=== PATIENT | female | born 1985 | race Caucasian/White ===

== ENCOUNTER 2016-10-21 01:09 | Emergency (ER) | payer OTHER ==
[~2016-10-21] VITALS: Ht 170.2 cm; Wt 99.8 kg
[2016-10-21 01:23] VITALS: BP 122/85
[2016-10-21] MEDS ORDERED: HYDR-3713 PO (02:43)
[2016-10-21] MEDS ORDERED: CLEO300C2 PO (02:45)
[2016-10-21] MEDS ORDERED: NORCO 5/325MG TABLET (BULK) PO ONE (02:45)
[2016-10-21] MEDS ORDERED: CLINDAMYCIN 150 MG CAP PO ONE (02:45)
[2016-10-21] MEDS ORDERED: MAGICMW MT (02:45)
== END 2016-10-21 03:18 | disposition home or self-care (01) ==
LOC: M ED 02:34
DX: J02.9 Acute pharyngitis, unspecified (principal); K02.9 Dental caries, unspecified; F60.3 Borderline personality disorder

== ENCOUNTER 2016-10-29 08:05 | Emergency (ER) | payer OTHER ==
[~2016-10-29] VITALS: Ht 167.6 cm; Wt 99.8 kg
[~2016-10-29 08:05] MED LIST: CLEO300C2 PO; HYDR-3713 PO; MAGICMW MT
[2016-10-29 08:20] VITALS: BP 141/82
[2016-10-29] MEDS ORDERED: IBUP200T45 PO (08:43)
[2016-10-29] MEDS ORDERED: ACET30TAB PO (09:21)
== END 2016-10-29 09:47 | disposition home or self-care (01) ==
LOC: M ED 09:07
DX: H57.11 Ocular pain, right eye (principal); Z79.2 Long term (current) use of antibiotics

== ENCOUNTER 2017-01-12 23:38 | Emergency (ER) | payer OTHER ==
[~2017-01-12] VITALS: Ht 165.1 cm; Wt 99.8 kg
[~2017-01-12 23:38] MED LIST changes: +ACET30TAB PO; +IBUP200T45 PO
[2017-01-13] MEDS ORDERED: NS 1,000 ML IV ONE ×2 (01:00→02:00)
[2017-01-13] MEDS ORDERED: ONDANSETRON 4MG/2ML VIAL (J2405) IV ONE (01:00)
[2017-01-13] MEDS ORDERED: KETOROLAC 30 MG/ML VIAL (J1885) IV ONE (01:00)
[2017-01-13] MEDS ORDERED: GI COCKTAIL 50ML BTL(HYOSCYAMINE/MAALOX/LIDOCAINE VISCOUS)(1:3:1) PO ONE (01:15)
[2017-01-13 01:16] LABS: BASO % 0.3 % (0.0-1.0); EOS # 0.2 K/mm3 (0.0-0.50); EOS % 1.7 % (0.0-3.0); LARGE UNSTAINED CELL # 0.2 K/mm3 (0.0-0.4); LARGE UNSTAINED CELL % 1.4 % (0.0-4.0); LYMPH # 2.9 K/mm3 (1.5-6.5); LYMPH % 22.2 % (24.0-44.0); MEAN CORPUSCULAR HEMOGLOBIN 29.9 pg (27.0-33.0); MEAN CORPUSCULAR HGB CONC 33.9 g/dl (32.0-36.5); MEAN CORPUSCULAR VOLUME 88.1 fl (80.0-96.0); MONO # 0.5 K/mm3 (0.0-0.8); MONO % 3.5 % (0.0-5.0); NEUTROPHILS # 9.1 K/mm3 (1.8-7.7); NEUTROPHILS % 70.9 % (36.0-66.0); PLATELET COUNT, AUTOMATED 255 k/mm3 (150-450); RED CELL DISTRIBUTION WIDTH 13.1 % (11.5-14.5); WHITE BLOOD COUNT 12.8 K/mm3 (4.0-10.0)
[2017-01-13] MEDS ORDERED: NEOSPORIN OINT 0.9 GM PKT (FLOOR STOCK) As Ordered ONE (01:22)
[2017-01-13 01:35] LABS: ALBUMIN 3.4 GM/DL (3.2-5.2); ALBUMIN/GLOBULIN RATIO 0.81 (1.00-1.93); ALKALINE PHOSPHATASE 82 U/L (45-117); ALT/SGPT 36 U/L (12-78); ANION GAP 5 MEQ/L (8-16); AST/SGOT 19 U/L (15-37); BILIRUBIN,DIRECT < 0.1 MG/DL (0.0-0.2); BILIRUBIN,TOTAL 0.2 MG/DL (0.2-1.0); BLOOD UREA NITROGEN 7 MG/DL (7-18); CALCIUM LEVEL 8.8 MG/DL (8.5-10.1); CARBON DIOXIDE LEVEL 25 MEQ/L (21-32); CHLORIDE LEVEL 110 MEQ/L (98-107); CREATININE FOR GFR 0.61 MG/DL (0.55-1.02); GLOMERULAR FILTRATION RATE > 60.0 (>60); GLUCOSE, FASTING 89 MG/DL (70-105); POTASSIUM SERUM 3.8 MEQ/L (3.5-5.1); SODIUM LEVEL 140 MEQ/L (136-145); TOTAL PROTEIN 7.6 GM/DL (6.4-8.2)
[2017-01-13] MEDS ORDERED: CIPROFLOXACIN 400 MG in APPROPRIATE DILUENT 1 EA IV ONE (02:00)
[2017-01-13] MEDS ORDERED: MORPHINE 4 MG/ML 1ML SYRINGE IV ONE (02:00)
--- NOTE | 2017-01-13 03:00 | REPUSA ---
CLINICAL HISTORY: Abdominal pain. TECHNIQUE: Multiple axial, sagittal and coronal CT images were obtained through the abdomen and pelvi s without administration of oral or IV contrast material. COMMENTS: The liver is of uniform attenuation without mass or defect. There is no intra or extrahepatic biliary ductal dilatation. The spleen is normal. The gallbladder is within normal limits. The pancreas is of normal contour and attenuation characteristics. There is no evidence of adrenal mass. 3 mm left renal nonobstructing stone. The kidneys are normal in size, shape and configuration. No right renal or ureteral calculi are iden tified. There is no hydroureter or hydronephrosis. There is no evidence for appendicitis. There is no bowel wall thickening. No evidence for small or la rge bowel obstruction. There is no evidence of abdominal ascites or lymphadenopathy. There is no evidence of intrinsic or extrinsic bladder mass. There is no pelvic ascites or lymphadeno thao. Thickened bladder. Images of the lung bases show no evidence of pleural or parenchymal mass. There are no pleural effusi ons. The bony structures are free of lytic or blastic lesions. IMPRESSION: Thickened bladder. Under distention versus cystitis. Nonobstructing left renal stone. Thank you for your kind referral of this patient.
[2017-01-13] MEDS ORDERED: CIPR500T89 PO (03:19)
[2017-01-13 04:30] VITALS: BP 134/90
== END 2017-01-13 04:32 | disposition home or self-care (01) ==
LOC: M ED 01-13 00:11
DX: N39.0 Urinary tract infection, site not specified (principal); N20.0 Calculus of kidney; F17.200 Nicotine dependence, unspecified, uncomplicated; E66.9 Obesity, unspecified

== ENCOUNTER 2017-02-01 18:38 | Emergency (ER) | payer OTHER ==
[~2017-02-01] VITALS: Ht 165.1 cm; Wt 100.0 kg
[~2017-02-01 18:38] MED LIST changes: +CIPR-249 PO
[2017-02-01] MEDS ORDERED: ONDANSETRON 4MG/2ML VIAL (J2405) IV ONE (21:15)
[2017-02-01] MEDS ORDERED: NS 1,000 ML IV ONE (21:15)
[2017-02-01] MEDS ORDERED: GI COCKTAIL 50ML BTL(HYOSCYAMINE/MAALOX/LIDOCAINE VISCOUS)(1:3:1) PO ONE (21:15)
[2017-02-01 21:42] LABS: BASO % 0.3 % (0.0-1.0); EOS # 0.2 K/mm3 (0.0-0.50); LARGE UNSTAINED CELL # 0.1 K/mm3 (0.0-0.4); LYMPH # 2.5 K/mm3 (1.5-6.5); LYMPH % 19.9 % (24.0-44.0); MEAN CORPUSCULAR HEMOGLOBIN 29.7 pg (27.0-33.0); MEAN CORPUSCULAR HGB CONC 33.9 g/dl (32.0-36.5); MEAN CORPUSCULAR VOLUME 87.6 fl (80.0-96.0); MONO # 0.4 K/mm3 (0.0-0.8); MONO % 3.1 % (0.0-5.0); NEUTROPHILS # 8.7 K/mm3 (1.8-7.7); NEUTROPHILS % 73.7 % (36.0-66.0); PLATELET COUNT, AUTOMATED 216 k/mm3 (150-450); RED CELL DISTRIBUTION WIDTH 13.2 % (11.5-14.5); WHITE BLOOD COUNT 11.8 K/mm3 (4.0-10.0)
[2017-02-01 22:25] LABS: ALBUMIN 3.5 GM/DL (3.2-5.2); ALKALINE PHOSPHATASE 85 U/L (45-117); ALT/SGPT 28 U/L (12-78); ANION GAP 5 MEQ/L (8-16); AST/SGOT 17 U/L (15-37); BILIRUBIN,DIRECT < 0.1 MG/DL (0.0-0.2); BILIRUBIN,TOTAL 0.3 MG/DL (0.2-1.0); BLOOD UREA NITROGEN 8 MG/DL (7-18); CALCIUM LEVEL 8.1 MG/DL (8.5-10.1); CARBON DIOXIDE LEVEL 26 MEQ/L (21-32); CHLORIDE LEVEL 107 MEQ/L (98-107); CREATININE FOR GFR 0.63 MG/DL (0.55-1.02); GLOMERULAR FILTRATION RATE > 60.0 (>60); GLUCOSE, FASTING 82 MG/DL (70-105); POTASSIUM SERUM 3.7 MEQ/L (3.5-5.1); SODIUM LEVEL 138 MEQ/L (136-145)
[2017-02-01 22:31] VITALS: BP 114/69
[2017-02-01] MEDS ORDERED: OXYCODONE/APAP 5MG/325MG(BULK FOR ED) 1 TABLET PO ONE (22:45)
[2017-02-01] MEDS ORDERED: ZOFR4TAB3 PO (22:50)
[2017-02-01] MEDS ORDERED: NORCOTAB PO (22:50)
[2017-06-20] MEDS ORDERED: RISP0.5T21 PO (14:50)
[2017-06-20] MEDS ORDERED: TRAZO50TA PO (14:50)
[2017-06-20] MEDS ORDERED: QUET1TAB7 PO (14:50)
[2017-06-20] MEDS ORDERED: SERT50TA PO (14:50)
[2017-06-24] MEDS ORDERED: AMOX875T PO (11:16)
[2017-06-24] MEDS ORDERED: NORCOTAB PO (11:17)
== END 2017-02-01 23:16 | disposition home or self-care (01) ==
LOC: M ED 21:08
DX: R10.9 Unspecified abdominal pain (principal); F17.200 Nicotine dependence, unspecified, uncomplicated

== ENCOUNTER 2017-02-07 14:55 | Emergency (ER) | payer OTHER ==
[~2017-02-07] VITALS: Ht 166.4 cm; Wt 98.7 kg
[~2017-02-07 14:55] MED LIST changes: +NORCOTAB PO; +ZOFR4TAB3 PO
[2017-02-07] MEDS ORDERED: NS 1,000 ML IV ONE (15:30)
[2017-02-07] MEDS ORDERED: ONDANSETRON 4MG/2ML VIAL (J2405) IV ONE (15:30)
[2017-02-07] MEDS ORDERED: KETOROLAC 30 MG/ML VIAL (J1885) IV ONE (15:30)
[2017-02-07] MEDS ORDERED: GASTROGRAFIN SOLUTION 30ML (Q9963) As Ordered ONE (15:34)
[2017-02-07] MEDS ORDERED: GASTROGRAFIN SOLUTION 30ML (Q9963) PO ONE ×2 (15:45→16:15)
[2017-02-07] MEDS ORDERED: METOCLOPRAMIDE INJ 10MG/2ML VIAL (J2765) IV ONE (16:00)
[2017-02-07 16:03] LABS: BASO % 0.1 % (0.0-1.0); EOS % 0.3 % (0.0-3.0); LARGE UNSTAINED CELL # 0.1 K/mm3 (0.0-0.4); LARGE UNSTAINED CELL % 0.7 % (0.0-4.0); LYMPH % 5.3 % (24.0-44.0); MEAN CORPUSCULAR HEMOGLOBIN 30.2 pg (27.0-33.0); MEAN CORPUSCULAR HGB CONC 34.7 g/dl (32.0-36.5); MEAN CORPUSCULAR VOLUME 86.9 fl (80.0-96.0); MONO # 0.8 K/mm3 (0.0-0.8); MONO % 4.4 % (0.0-5.0); NEUTROPHILS # 15.4 K/mm3 (1.8-7.7); NEUTROPHILS % 89.2 % (36.0-66.0); PLATELET COUNT, AUTOMATED 235 k/mm3 (150-450); RED CELL DISTRIBUTION WIDTH 13.1 % (11.5-14.5); WHITE BLOOD COUNT 17.2 K/mm3 (4.0-10.0)
[2017-02-07 16:27] LABS: MICROSCOPIC INDICATED? MAN YES (NO)
[2017-02-07 16:28] LABS: BACTERIA, URINE SMALL AMOUNT; HYALINE CAST, URINE NONE SEEN /lpf (0-1); MICROSCOPIC EXAM UNSPUN; RBC, URINE 0-1 /hpf (0-3); SQUAMOUS EPITHELIAL CELL URINE SMALL AMOUNT /hpf (SMALL AMT)
[2017-02-07] MEDS ORDERED: MORPHINE 4 MG/ML 1ML SYRINGE IV ONE (16:45)
[2017-02-07 17:05] LABS: CONTROL LINE HCG INT CTR LINE PRESENT
[2017-02-07] MEDS ORDERED: ISOVUE-370 76% 100ML VIAL (Q9967) As Ordered ONE (17:07)
[2017-02-07 17:12] LABS: ALBUMIN/GLOBULIN RATIO 0.93 (1.00-1.93); ALKALINE PHOSPHATASE 95 U/L (45-117); ALT/SGPT 36 U/L (12-78); ANION GAP 10 MEQ/L (8-16); AST/SGOT 22 U/L (15-37); BILIRUBIN,DIRECT 0.1 MG/DL (0.0-0.2); BILIRUBIN,TOTAL 0.4 MG/DL (0.2-1.0); BLOOD UREA NITROGEN 10 MG/DL (7-18); CALCIUM LEVEL 9.1 MG/DL (8.5-10.1); CARBON DIOXIDE LEVEL 22 MEQ/L (21-32); CHLORIDE LEVEL 106 MEQ/L (98-107); CREATININE FOR GFR 0.67 MG/DL (0.55-1.02); GLOMERULAR FILTRATION RATE > 60.0 (>60); GLUCOSE, FASTING 142 MG/DL (70-105); SODIUM LEVEL 138 MEQ/L (136-145); TOTAL PROTEIN 8.3 GM/DL (6.4-8.2)
[2017-02-07] MEDS ORDERED: CIPROFLOXACIN 500 MG TAB PO ONE (18:15)
[2017-02-07] MEDS ORDERED: metroNIDAZOLE (FLAGYL) 500 MG TAB PO ONE (18:15)
--- NOTE | 2017-02-07 18:23 | REP ---
CT ABDOMEN AND PELVIS WITH IV AND ORAL CONTRAST: 02/07/2017. Clinical history: Generalized abdominal pain, left lower quadrant pain. Negative UCG. Comparison: 01/13/2017. Technique: Oral Gastrografin mixture 10 mL in 290 mL of flavored water for two doses per our bowel contrast protocol. Scanning through the abdomen and pelvis then performed after bolus of 100 mL Isovue 370. Coronal and sagittal reconstructions provided. Findings:CT abdomen: The lung bases are clear. No infiltrate or effusion. No nodule or mass. Heart is not enlarged. There is no pericardial thickening or effusion. Liver has a vertical diameter of 17 cm midclavicular line in the right hepatic lobe, not grossly enlarged. No hepatic mass, biliary dilatation or adjacent ascites. No splenomegaly or focal lesion. The gallbladder shows no calcified stone or mass. Adrenal glands are normal. Pancreas unremarkable. Kidneys show function without obstruction or mass. There is a 0.6 mm stone in the lower pole zaria without hydronephrosis, cyst or solid mass in either kidney. The ureters show a normal course to the bladder and are without dilatation or stone on either side. Aorta is normal. There is no periaortic or other retroperitoneal pathologic sized lymphadenopathy. Upper abdominal small bowel loops contrast filled, but without dilatation. Some minor thickening of the payne of the distal most aspect of the terminal ileum just before the ileocecal valve. Cecum, right colon through the flexures, transverse colon grossly unremarkable. There is some minor thickening of the wall of the left colon. Some minor inflammatory changes adjacent suggesting some mild colitis. There is no sign of perforation or free air in the abdomen or pelvis on lung window review of all CT slice levels. The bone windows show no destructive lesion in the spine or posterior elements and the visualized ribs were intact. CT pelvis: Bony hips, pelvis, sacrum, SI joints, lumbosacral junction all unremarkable on bone window settings. Uterus anteverted, not enlarged. Ovaries symmetric and without a mass. Bladder only partially filled without stone, wall thickening or mass. There is no ventral or inguinal hernia nor pathologic sized inguinal adenopathy. Small bowel loops unremarkable. Appendix seen and normal, filled with oral contrast. The distal left colon, sigmoid and rectum grossly intact. No pathologic sized inguinal adenopathy. Impression: 1. Evidence suggesting some mild colitis in the left colon without definite stricture, abscess or mass. Sigmoid colon not well distended and wall thickness cannot be judged. 2. Distal most terminal ileum shows mucosal thickening but no inflammatory changes in the adjacent fat. The appendix is seen and normal. No other colonic or small bowel abnormality. This may reflect some inflammatory bowel disease. Consider Crohn disease with terminal ileitis and colitis. 3. No ascites, adenopathy, abscess, mass or free air. Solid organs unremarkable. Bones unremarkable. Signed by Vinicius Mcdaniel MD 02/08/2017 08:39 P
[2017-02-07] MEDS ORDERED: ZOFR4TAB3 PO (18:25)
[2017-02-07] MEDS ORDERED: CIPR-249 PO (18:25)
[2017-02-07] MEDS ORDERED: FLAG500T PO (18:25)
[2017-02-07 18:40] VITALS: BP 123/78
[2017-06-20] MEDS ORDERED: QUET1TAB7 PO (14:50)
[2017-06-20] MEDS ORDERED: RISP0.5T21 PO (14:50)
[2017-06-20] MEDS ORDERED: TRAZO50TA PO (14:50)
[2017-06-20] MEDS ORDERED: SERT50TA PO (14:50)
[2017-06-24] MEDS ORDERED: AMOX875T PO (11:16)
[2017-06-24] MEDS ORDERED: NORCOTAB PO (11:17)
== END 2017-02-07 18:41 | disposition home or self-care (01) ==
LOC: M ED 15:37
DX: K52.9 Noninfective gastroenteritis and colitis, unspecified (principal); F17.200 Nicotine dependence, unspecified, uncomplicated; F60.9 Personality disorder, unspecified

== ENCOUNTER 2022-05-23 15:17 | Emergency (ER) | payer MEDICAID, OTHER, SELFPAY ==
[~2022-05-23] VITALS: Ht 167.6 cm; Wt 94.1 kg
[~2022-05-23 15:17] MED LIST changes: +ACET-716 PO; -ACET30TAB PO; +AMOX875T PO; +FLAG500T PO; +HYDR-3715 PO; -IBUP200T45 PO; +IBUP200T46 PO; -NORCOTAB PO; +QUET1TAB17 PO; +RISP0.5T21 PO; +SERT-141 PO; +TRAZ1TAB10 PO; +ZOFR4TAB14 PO; -ZOFR4TAB3 PO
[2022-05-23 15:48] LABS: BASO % 0.2 % (0.0-1.0); EOS # 0.2 10^3/uL (0.0-0.5); EOS % 1.2 % (0.0-3.0); HEMATOCRIT 27.5 % (36.0-47.0); HEMOGLOBIN 9.1 g/dl (12.0-15.5); LYMPH # 1.8 10^3/uL (1.5-5.0); LYMPH % 14.8 % (24.0-44.0); MEAN CORPUSCULAR HEMOGLOBIN 27.8 pg (27.0-33.0); MEAN CORPUSCULAR HGB CONC 33.1 g/dl (32.0-36.5); MEAN CORPUSCULAR VOLUME 84.1 fl (80.0-96.0); MONO # 0.6 10^3/uL (0.0-0.8); MONO % 5.1 % (2.0-8.0); NEUTROPHILS # 9.7 10^3/uL (1.5-8.5); NEUTROPHILS % 78.1 % (36.0-66.0); PLATELET COUNT, AUTOMATED 242 10^3/uL (150-450); RED BLOOD COUNT 3.27 10^6/uL (4.00-5.40); WHITE BLOOD COUNT 12.4 10^3/uL (4.0-10.0)
[2022-05-23 16:51] LABS: BLOOD UREA NITROGEN 6 MG/DL (7-18); CALCIUM LEVEL 8.8 MG/DL (8.5-10.1); CARBON DIOXIDE LEVEL 23 MEQ/L (21-32); CHLORIDE LEVEL 109 MEQ/L (98-107); CREATININE FOR GFR 0.45 MG/DL (0.55-1.30); FREE T4 0.85 NG/DL (0.76-1.46); GLOMERULAR FILTRATION RATE > 60.0 (>60); GLUCOSE, FASTING 101 MG/DL (70-100); MAGNESIUM LEVEL 1.8 MG/DL (1.8-2.4); POTASSIUM SERUM 3.9 MEQ/L (3.5-5.1); SODIUM LEVEL 137 MEQ/L (136-145)
[2022-05-23 17:15] VITALS: BP 103/55
[2022-05-23 17:44] LABS: APPEARANCE, URINE MANUAL CLOUDY (CLEAR); COLOR, URINE MANUAL YELLOW (YELLOW); SPECIFIC GRAVITY,URINE MANUAL 1.015 (1.002-1.035)
[2022-05-23 17:45] LABS: BILIRUBIN, URINE MANUAL NEGATIVE (NEGATIVE); BLOOD URINE MANUAL POSITIVE (NEGATIVE); GLUCOSE, URINE (UA) MANUAL NEGATIVE (NEGATIVE); KETONE, URINE MANUAL NEGATIVE (NEGATIVE); LEUKOCYTE ESTERASE, URINE MAN POSITIVE (NEGATIVE); NITRITE, URINE MANUAL NEGATIVE (NEGATIVE); PROTEIN, URINE MANUAL 1+ mg/dL (NEGATIVE); UROBILINOGEN, URINE MANUAL NORMAL (NORMAL)
[2022-05-23 17:54] LABS: WBC, URINE TNTC /hpf (0-3)
[2022-05-23 17:55] LABS: AMORPHOUS SEDIMENT, URINE SMALL AMOUNT (NEGATIVE); BACTERIA, URINE LARGE AMOUNT; HYALINE CAST, URINE NONE SEEN /lpf (0-1); SQUAMOUS EPITHELIAL CELL URINE MOD AMOUNT /hpf (SMALL AMT)
[2022-05-23] MEDS ORDERED: NITR1CAP11 PO (17:57)
== END 2022-05-23 18:10 | disposition home or self-care (01) ==
LOC: M ED 15:17
DX: O23.92 Unspecified genitourinary tract infection in pregnancy, second trimester (principal); O26.92 Pregnancy related conditions, unspecified, second trimester; R42 Dizziness and giddiness; F17.200 Nicotine dependence, unspecified, uncomplicated; Z3A.23 23 weeks gestation of pregnancy; Z87.442 Personal history of urinary calculi

== ENCOUNTER → 2022-06-19 | Outpatient (CLI) | payer OTHER ==
[~2022-06-19] MED LIST changes: +NITR1CAP11 PO
[2022-06-19 15:28] LABS: HEMATOCRIT 27.6 % (36.0-47.0); HEMOGLOBIN 8.8 g/dl (12.0-15.5); MEAN CORPUSCULAR HEMOGLOBIN 27.4 pg (27.0-33.0); MEAN CORPUSCULAR HGB CONC 31.9 g/dl (32.0-36.5); PLATELET COUNT, AUTOMATED 261 10^3/uL (150-450); RED BLOOD COUNT 3.21 10^6/uL (4.00-5.40)
[2022-06-19 17:02] LABS: GC DNA AMPLIFICATION NEGATIVE (NEGATIVE)
[2022-06-19 20:21] LABS: GLUCOSE CHALLENGE TEST 1 HOUR 146 MG/DL (LESS THAN 140); HEPATITIS C VIRUS ABY INDEX < 0.0 INDEX (<0.8); HIV 1&2 SCREEN CENTAUR NEGATIVE (NEGATIVE)
== END ==
LOC: M PLALAB 11:33
PROVIDERS: ATTEND Advanced Practice Midwife
DX: O30.042 Twin pregnancy, dichorionic/diamniotic, second trimester (principal); Z3A.00 Weeks of gestation of pregnancy not specified

== ENCOUNTER → 2022-06-26 | Outpatient (CLI) | payer OTHER | LOC: M LAB 07:51 | PROVIDERS: ATTEND Advanced Practice Midwife | DX: O99.810 Abnormal glucose complicating pregnancy (principal) ==

== ENCOUNTER → 2022-07-18 | Outpatient (CLI) | payer OTHER | LOC: M RAD 14:16 | PROVIDERS: ATTEND Advanced Practice Midwife | DX: O30.042 Twin pregnancy, dichorionic/diamniotic, second trimester (principal); Z3A.31 31 weeks gestation of pregnancy ==

== ENCOUNTER → 2022-07-25 | Outpatient (CLI) | payer OTHER | LOC: M WHC 12:52 | PROVIDERS: ATTEND Advanced Practice Midwife | DX: O30.043 Twin pregnancy, dichorionic/diamniotic, third trimester (principal); Z3A.32 32 weeks gestation of pregnancy; O32.1XX1 Maternal care for breech presentation, fetus 1 ==

== ENCOUNTER → 2022-08-22 | Outpatient (REF) | payer OTHER ==
[~2022-08-22] MED LIST changes: +CVS50CAP PO; +FLUO40CA PO; +IRON27TA2 PO; +VITA65TA PO
== END ==
LOC: M SFHCWAGY 17:18
PROVIDERS: ATTEND Advanced Practice Midwife
DX: O30.043 Twin pregnancy, dichorionic/diamniotic, third trimester (principal)

== ENCOUNTER → 2022-08-22 | Outpatient (CLI) | payer OTHER | LOC: M LABSMTC 11:46 | PROVIDERS: ATTEND Anesthesiology | DX: Z01.818 Encounter for other preprocedural examination (principal) ==

== ENCOUNTER 2022-08-25 23:48 | Inpatient (IN) | payer OTHER ==
[~2022-08-25] VITALS: Ht 167.6 cm; Wt 100.7 kg
[2022-08-26] VITALS (9 sets, daily range): BP systolic 104–132; BP diastolic 55–78
[2022-08-26] MEDS ORDERED: HOME MED LIST COMPLETE! XX SCH (00:25)
[2022-08-26] MEDS ORDERED: LACTATED RINGER'S 1000 ML IV STA (00:55)
[2022-08-26] MEDS ORDERED: TRANEXAMIC ACID INJection 1,000 MG in NS 100 ML IV PRN (00:55)
[2022-08-26] MEDS ORDERED: ceFAZolin SOD 2 GM in IV 1 EA IV ONE (00:55)
[2022-08-26] MEDS ORDERED: AZITHROMYCIN INJ 500 MG, VIAL MATE ADAPTER 1 EACH in NS 250 ML IV ONE (00:55)
[2022-08-26] MEDS ORDERED: LR 1,000 ML IV SCH (00:55)
[2022-08-26] MEDS ORDERED: BICITRA 30ML SOLN UDC PO ONE (00:55)
[2022-08-26 01:14] LABS: HEMATOCRIT 27.1 % (36.0-47.0); HEMOGLOBIN 8.7 g/dl (12.0-15.5); MEAN CORPUSCULAR HEMOGLOBIN 25.1 pg (27.0-33.0); MEAN CORPUSCULAR HGB CONC 32.1 g/dl (32.0-36.5); MEAN CORPUSCULAR VOLUME 78.1 fl (80.0-96.0); PLATELET COUNT, AUTOMATED 146 10^3/uL (150-450); RED BLOOD COUNT 3.47 10^6/uL (4.00-5.40); WHITE BLOOD COUNT 13.3 10^3/uL (4.0-10.0)
[2022-08-26] MEDS ORDERED: ONDANSETRON 4MG 2ML VIAL As Ordered ONE (02:30)
[2022-08-26] MEDS ORDERED: METOCLOPRAMIDE INJ 10MG/2ML VIAL As Ordered ONE (02:30)
[2022-08-26] MEDS ORDERED: OXYTOCIN 30UNITS IN 0.9% NaCl 500ML IV BAG As Ordered ONE ×3 (02:30→03:29)
[2022-08-26] MEDS ORDERED: KETOROLAC 60MG 2ML VIAL As Ordered ONE (02:30)
[2022-08-26] MEDS ORDERED: MORPHINE PRES-FREE INJ 10 MG/10 ML VIAL As Ordered ONE (02:30)
[2022-08-26] MEDS ORDERED: PHENYLephrine 500MCG 5ML (100MCG/ML) SYRINGE As Ordered ONE ×2 (02:30→02:34)
[2022-08-26] MEDS ORDERED: PERCOCET 5MG/325MG TAB PO PRN (03:20)
[2022-08-26] MEDS ORDERED: ACETAMINOPHEN 500 MG TAB PO PRN (03:20)
[2022-08-26] MEDS ORDERED: SIMETHICONE 80MG CHEW TAB PO PRN (03:20)
[2022-08-26] MEDS ORDERED: ONDANSETRON 4MG 2ML VIAL IV PRN (03:20)
[2022-08-26] MEDS ORDERED: RHOGAM 300MCG (1500IU) INJ IM SCH (03:20)
[2022-08-26] MEDS ORDERED: OXYTOCIN DRIP 30 UNITS in IV 1 EA IV SCH (03:20)
[2022-08-26] MEDS ORDERED: MOM 30ML SUSPENSION UDC PO PRN (03:20)
[2022-08-26] MEDS: LR 1,000 ML IV SCH ×4 (03:20→22:01)
[2022-08-26 07:43] LABS: HEMATOCRIT 25.4 % (36.0-47.0); MEAN CORPUSCULAR HEMOGLOBIN 25.1 pg (27.0-33.0); MEAN CORPUSCULAR HGB CONC 31.5 g/dl (32.0-36.5); MEAN CORPUSCULAR VOLUME 79.6 fl (80.0-96.0); PLATELET COUNT, AUTOMATED 123 10^3/uL (150-450); RED BLOOD COUNT 3.19 10^6/uL (4.00-5.40); WHITE BLOOD COUNT 19.4 10^3/uL (4.0-10.0)
[2022-08-26] MEDS: DOCUSATE SODIUM 100MG CAPSULE PO SCH ×2 (09:53→20:50)
[2022-08-26] MEDS: PRENATAL VITAMINS CHEWABLE TABLET PO SCH (09:53)
[2022-08-26] MEDS: KETOROLAC 30 MG/ML 1ML VIAL IV SCH ×3 (09:53→20:50)
[2022-08-26] MEDS: PERCOCET 5MG/325MG TAB PO PRN (19:44)
[2022-08-27 02:00] VITALS: BP 128/65
[2022-08-27] MEDS: PERCOCET 5MG/325MG TAB PO PRN ×2 (02:04→12:11)
[2022-08-27] MEDS: IBUPROFEN 800 MG TAB PO SCH ×3 (05:14→20:37)
[2022-08-27 06:00] VITALS: BP 120/75
[2022-08-27 06:35] LABS: HEMATOCRIT 23.9 % (36.0-47.0); HEMOGLOBIN 7.5 g/dl (12.0-15.5); MEAN CORPUSCULAR HEMOGLOBIN 24.9 pg (27.0-33.0); MEAN CORPUSCULAR HGB CONC 31.4 g/dl (32.0-36.5); MEAN CORPUSCULAR VOLUME 79.4 fl (80.0-96.0); PLATELET COUNT, AUTOMATED 162 10^3/uL (150-450); RED BLOOD COUNT 3.01 10^6/uL (4.00-5.40); WHITE BLOOD COUNT 13.2 10^3/uL (4.0-10.0)
[2022-08-27] MEDS: DOCUSATE SODIUM 100MG CAPSULE PO SCH ×2 (08:32→20:37)
[2022-08-27] MEDS: PRENATAL VITAMINS CHEWABLE TABLET PO SCH (08:32)
[2022-08-27] MEDS ORDERED: INFLUENZA QUADRIVALENT PF VACCINE 0.5ML SYRINGE IM.IMMUN ONE (09:00)
[2022-08-27] MEDS ORDERED: BOOSTRIX/ADACEL VACCINE (DIPHTH/PERTUSS/ACELL/TETANUS) 0.5ML SYR IM.IMMUN ONE (09:00)
[2022-08-27 10:15] VITALS: BP 126/76
[2022-08-27 14:00] VITALS: BP 121/64
[2022-08-27 18:00] VITALS: BP 128/63
[2022-08-27 22:08] VITALS: BP 112/71
[2022-08-28 02:05] VITALS: BP 121/61
[2022-08-28] MEDS: IBUPROFEN 800 MG TAB PO SCH ×2 (05:08→12:43)
[2022-08-28 06:00] VITALS: BP 142/80
[2022-08-28 06:44] VITALS: BP 120/65
[2022-08-28] MEDS: DOCUSATE SODIUM 100MG CAPSULE PO SCH (08:28)
[2022-08-28] MEDS: PRENATAL VITAMINS CHEWABLE TABLET PO SCH (08:28)
[2022-08-28] MEDS ORDERED: MEASLES,MUMPS,RUBELLA VACCINE INJ (MMR-II) SC.IMMUN ONE (09:00)
[2022-08-28] MEDS: PERCOCET 5MG/325MG TAB PO PRN (09:37)
[2022-08-28 10:00] VITALS: BP 137/72
[2022-08-28] MEDS ORDERED: IBUP80TA PO (11:19)
[2022-08-28] MEDS ORDERED: PERCOCET PO (11:19)
== END 2022-08-28 15:25 | disposition home or self-care (01) | DRG 540 ==
LOC: M LDO 23:48 → M LDI 08-26 00:50 → M OBS 08-26 04:41
PROVIDERS: ADMIT Obstetrics & Gynecology; ATTEND Obstetrics & Gynecology
PROC: 0UB70ZZ Excision of Bilateral Fallopian Tubes, Open Approach (ICD-10-PCS; 2022-08-26)
PROC: 10D00Z1 Extraction of Products of Conception, Low, Open Approach (ICD-10-PCS; principal; 2022-08-26 01:02)
DX: O32.1XX0 Maternal care for breech presentation, not applicable or unspecified (principal); Z37.2 Twins, both liveborn; O24.429 Gestational diabetes mellitus in childbirth, unspecified control; F17.210 Nicotine dependence, cigarettes, uncomplicated; O99.334 Smoking (tobacco) complicating childbirth; Z3A.37 37 weeks gestation of pregnancy; Z88.8 Allergy status to other drugs, medicaments and biological substances; O30.013 Twin pregnancy, monochorionic/monoamniotic, third trimester

== ENCOUNTER 2022-09-03 10:14 | Emergency (ER) | payer OTHER ==
[~2022-09-03] VITALS: Ht 167.6 cm; Wt 98.5 kg
[~2022-09-03 10:14] MED LIST changes: +IBUP80TA PO; +PERCOCET PO
[2022-09-03] MEDS ORDERED: NS 1,000 ML IV ONE (13:45)
[2022-09-03] MEDS ORDERED: ACETAMINOPHEN 325 MG TAB PO ONE (13:45)
[2022-09-03 13:59] LABS: BASO # 0.1 10^3/uL (0.0-0.2); BASO % 0.5 % (0.0-1.0); EOS # 0.2 10^3/uL (0.0-0.5); EOS % 1.5 % (0.0-3.0); HEMOGLOBIN 9.1 g/dl (12.0-15.5); LYMPH % 18.5 % (24.0-44.0); MEAN CORPUSCULAR HEMOGLOBIN 24.9 pg (27.0-33.0); MEAN CORPUSCULAR HGB CONC 30.3 g/dl (32.0-36.5); MONO # 0.5 10^3/uL (0.0-0.8); MONO % 4.3 % (2.0-8.0); NEUTROPHILS # 8.2 10^3/uL (1.5-8.5); NEUTROPHILS % 74.2 % (36.0-66.0); PLATELET COUNT, AUTOMATED 394 10^3/uL (150-450); RED BLOOD COUNT 3.66 10^6/uL (4.00-5.40)
[2022-09-03 14:22] LABS: BLOOD UREA NITROGEN 11 MG/DL (9-23); CALCIUM LEVEL 8.3 MG/DL (8.5-10.1); CARBON DIOXIDE LEVEL 25 MMOL/L (20-31); CHLORIDE LEVEL 107 MMOL/L (98-107); CREATININE FOR GFR 0.57 MG/DL (0.55-1.30); GLOMERULAR FILTRATION RATE > 60.0 (>60); GLUCOSE, FASTING 72 MG/DL (60-100); POTASSIUM SERUM 4.5 MMOL/L (3.5-5.1); SODIUM LEVEL 139 MMOL/L (136-145)
[2022-09-03] MEDS ORDERED: KETOROLAC 30 MG/ML 1ML VIAL IV ONE (15:00)
[2022-09-03 15:21] LABS: ERYTHROCYTE SEDIMENTATION RATE 55 mm/hr (0-20)
[2022-09-03] MEDS ORDERED: diphenhydrAMINE 50MG/ML VIAL IV STA (16:22)
[2022-09-03] MEDS ORDERED: MAG SULF 1GM/100ML (MAG RUN) 1 GM in IV 1 EA IV ONE (16:30)
[2022-09-03] MEDS ORDERED: HALOPERIDOL 5MG/ML 1ML VIAL IV ONE (16:30)
[2022-09-03] MEDS ORDERED: PERCOCET PO (17:42)
[2022-09-03] MEDS ORDERED: PROC10TA5 PO (17:42)
[2022-09-03 17:55] VITALS: BP 186/96
== END 2022-09-03 17:58 | disposition home or self-care (01) ==
LOC: M ED 10:14
DX: O89.4 Spinal and epidural anesthesia-induced headache during the puerperium (principal); F31.9 Bipolar disorder, unspecified; F41.9 Anxiety disorder, unspecified; Z87.442 Personal history of urinary calculi; Z88.2 Allergy status to sulfonamides; Z79.810 Long term (current) use of selective estrogen receptor modulators (SERMs); Z79.899 Other long term (current) drug therapy
CPT/HCPCS: 70450; 80048; 85025; 85652; 86140; 96365; 96375; 99284; J1100

== ENCOUNTER → 2023-11-07 | Outpatient (REF) | payer OTHER ==
[~2023-11-07] MED LIST changes: +PROC10TA5 PO
[2023-11-07 16:50] LABS: APPEARANCE, URINE CLOUDY (CLEAR); BACTERIA, URINE AUTO 2+ (NEGATIVE); BILIRUBIN, URINE AUTO NEGATIVE (NEGATIVE); BLOOD, URINE BLOOD 1+ (NEGATIVE); CALCIUM OXALATE CRYSTALS SMALL; COLOR, URINE AMBER (YELLOW); GLUCOSE, URINE (UA) AUTO NEGATIVE (NEGATIVE); KETONE, URINE AUTO NEGATIVE (NEGATIVE); LEUKOCYTE ESTERASE, URINE AUTO 2+ (NEGATIVE); MUCUS, URINE LARGE (NEGATIVE); NITRITE, URINE AUTO NEGATIVE (NEGATIVE); PROTEIN, URINE AUTO 2+ mg/dL (NEGATIVE); RBC, URINE AUTO 31 /HPF (0-3); SQUAMOUS EPITHELIAL CELL UR AU 13 /HPF (0-6); WBC, URINE AUTO TNTC /HPF (0-3)
[2023-11-07 17:06] LABS: CREATININE, URINE 357.7 MG/DL; MAU/CREAT RATIO 67.6 MCG/MG (0.0-30.0)
== END ==
LOC: M LAB REF 16:14
PROVIDERS: ATTEND Nurse Practitioner Family
DX: R82.90 Unspecified abnormal findings in urine (principal)

== ENCOUNTER → 2023-11-29 | Outpatient (REF) | payer OTHER ==
[2023-11-29 18:14] LABS: APPEARANCE, URINE HAZY (CLEAR); BACTERIA, URINE AUTO NEGATIVE (NEGATIVE); BILIRUBIN, URINE AUTO NEGATIVE (NEGATIVE); BLOOD, URINE BLOOD 1+ (NEGATIVE); COLOR, URINE AMBER (YELLOW); GLUCOSE, URINE (UA) AUTO NEGATIVE (NEGATIVE); KETONE, URINE AUTO NEGATIVE (NEGATIVE); LEUKOCYTE ESTERASE, URINE AUTO 2+ (NEGATIVE); MUCUS, URINE LARGE (NEGATIVE); NITRITE, URINE AUTO NEGATIVE (NEGATIVE); PROTEIN, URINE AUTO 1+ mg/dL (NEGATIVE); RBC, URINE AUTO 10 /HPF (0-3); SPECIFIC GRAVITY URINE AUTO 1.016 (1.002-1.035); SQUAMOUS EPITHELIAL CELL UR AU 1 /HPF (0-6); UROBILINOGEN, URINE AUTO 0.2 mg/dL (0.0-2.0); WBC, URINE AUTO 74 /HPF (0-3)
[2023-11-29 18:27] LABS: BASO % 0.3 % (0.0-1.0); EOS # 0.2 10^3/uL (0.0-0.5); EOS % 1.9 % (0.0-3.0); HEMATOCRIT 33.8 % (36.0-47.0); HEMOGLOBIN 9.9 g/dl (12.0-15.5); LYMPH # 1.9 10^3/uL (1.5-5.0); LYMPH % 21.6 % (24.0-44.0); MEAN CORPUSCULAR HEMOGLOBIN 21.4 pg (27.0-33.0); MEAN CORPUSCULAR HGB CONC 29.3 g/dl (32.0-36.5); MEAN CORPUSCULAR VOLUME 73.2 fl (80.0-96.0); MONO # 0.4 10^3/uL (0.0-0.8); MONO % 4.6 % (2.0-8.0); NEUTROPHILS # 6.3 10^3/uL (1.5-8.5); NEUTROPHILS % 71.4 % (36.0-66.0); PLATELET COUNT, AUTOMATED 364 10^3/uL (150-450); RED BLOOD COUNT 4.62 10^6/uL (4.00-5.40); WHITE BLOOD COUNT 8.9 10^3/uL (4.0-10.0)
[2023-11-29 19:05] LABS: MAU/CREAT RATIO 67.6 MCG/MG (0.0-30.0)
== END ==
LOC: M LAB REF 16:38
PROVIDERS: ATTEND Nurse Practitioner Family
DX: N39.0 Urinary tract infection, site not specified (principal); R80.9 Proteinuria, unspecified

== ENCOUNTER → 2023-12-19 | Outpatient (REF) | payer OTHER ==
[2023-12-19 14:39] LABS: BASO % 0.3 % (0.0-1.0); EOS # 0.3 10^3/uL (0.0-0.5); EOS % 2.1 % (0.0-3.0); HEMATOCRIT 32.6 % (36.0-47.0); HEMOGLOBIN 9.3 g/dl (12.0-15.5); LYMPH # 2.9 10^3/uL (1.5-5.0); LYMPH % 24.8 % (24.0-44.0); MEAN CORPUSCULAR HEMOGLOBIN 21.6 pg (27.0-33.0); MEAN CORPUSCULAR HGB CONC 28.5 g/dl (32.0-36.5); MEAN CORPUSCULAR VOLUME 75.6 fl (80.0-96.0); MONO # 0.5 10^3/uL (0.0-0.8); MONO % 3.8 % (2.0-8.0); NEUTROPHILS % 68.6 % (36.0-66.0); PLATELET COUNT, AUTOMATED 336 10^3/uL (150-450); RED BLOOD COUNT 4.31 10^6/uL (4.00-5.40); WHITE BLOOD COUNT 11.7 10^3/uL (4.0-10.0)
[2023-12-19 14:40] LABS: BLOOD UREA NITROGEN 10 MG/DL (9-23); CALCIUM LEVEL 8.7 MG/DL (8.5-10.1); CARBON DIOXIDE LEVEL 25 MMOL/L (20-31); CHLORIDE LEVEL 110 MMOL/L (98-107); CREATININE FOR GFR 0.71 MG/DL (0.55-1.30); GLOMERULAR FILTRATION RATE > 60.0 (>60); GLUCOSE, FASTING 111 MG/DL (60-100); IRON (FE) 13 UG/DL (50-170); PERCENT SATURATION 4.1 % (13.2-45.0); POTASSIUM SERUM 4.4 MMOL/L (3.5-5.1); SODIUM LEVEL 141 MMOL/L (136-145); TOTAL IRON BINDING CAPACITY 314 UG/DL (250-425)
[2023-12-19 14:45] LABS: FERRITIN 5.6 NG/ML (7.3-270.7)
== END ==
LOC: M LAB REF 13:07
PROVIDERS: ATTEND Nurse Practitioner Family
DX: D64.9 Anemia, unspecified (principal); R80.9 Proteinuria, unspecified

== ENCOUNTER → 2023-12-30 | Outpatient (REF) | payer OTHER | LOC: M LAB REF 16:24 | PROVIDERS: ATTEND Nurse Practitioner Family | DX: D50.9 Iron deficiency anemia, unspecified (principal) ==

== ENCOUNTER → 2023-12-31 | Outpatient (CLI) | payer OTHER | LOC: M RAD 15:12 | PROVIDERS: ATTEND Nurse Practitioner Family | DX: N20.0 Calculus of kidney (principal); R80.9 Proteinuria, unspecified ==

== ENCOUNTER → 2024-02-11 | Outpatient (REF) | payer OTHER ==
[~2024-02-11] MED LIST changes: +NITR100C3 PO; -NITR1CAP11 PO
[2024-02-11 18:27] LABS: CREATININE, URINE 162.4 MG/DL
[2024-02-11 18:28] LABS: MAU/CREAT RATIO 70.8 MCG/MG (0.0-30.0)
== END ==
LOC: M LAB REF 16:18
PROVIDERS: ATTEND Nurse Practitioner Family
DX: N39.0 Urinary tract infection, site not specified (principal)

== ENCOUNTER → 2024-08-05 | Outpatient (REF) | payer OTHER ==
[2024-08-05 14:14] LABS: BLOOD UREA NITROGEN 10 MG/DL (9-23); CALCIUM LEVEL 9.4 MG/DL (8.5-10.1); CARBON DIOXIDE LEVEL 26 MMOL/L (20-31); CHLORIDE LEVEL 108 MMOL/L (98-107); CREATININE FOR GFR 0.63 MG/DL (0.55-1.30); GLOMERULAR FILTRATION RATE > 60.0 (>60); GLUCOSE, FASTING 85 MG/DL (60-100); IRON (FE) 35 UG/DL (50-170); PERCENT SATURATION 10.1 % (13.2-45.0); SODIUM LEVEL 140 MMOL/L (136-145); TOTAL IRON BINDING CAPACITY 348 UG/DL (250-425)
[2024-08-05 14:15] LABS: FERRITIN 5.5 NG/ML (7.3-270.7)
[2024-08-05 14:25] LABS: BASO % 0.4 % (0.0-1.0); EOS # 0.1 10^3/uL (0.0-0.5); EOS % 1.5 % (0.0-3.0); HEMATOCRIT 35.7 % (36.0-47.0); HEMOGLOBIN 10.7 g/dl (12.0-15.5); LYMPH # 2.1 10^3/uL (1.5-5.0); LYMPH % 22.5 % (24.0-44.0); MEAN CORPUSCULAR VOLUME 73.3 fl (80.0-96.0); MONO # 0.5 10^3/uL (0.0-0.8); MONO % 4.9 % (2.0-8.0); NEUTROPHILS # 6.5 10^3/uL (1.5-8.5); NEUTROPHILS % 70.4 % (36.0-66.0); PLATELET COUNT, AUTOMATED 297 10^3/uL (150-450); RED BLOOD COUNT 4.87 10^6/uL (4.00-5.40); WHITE BLOOD COUNT 9.2 10^3/uL (4.0-10.0)
[2024-08-05 16:16] LABS: BACTERIA, URINE AUTO 1+ (NEGATIVE); MUCUS, URINE LARGE (NEGATIVE); RBC, URINE AUTO 24 /HPF (0-3); SQUAMOUS EPITHELIAL CELL UR AU 28 /HPF (0-6); WBC, URINE AUTO 60 /HPF (0-3)
[2024-08-05 16:47] LABS: CREATININE, URINE 240.2 MG/DL; CREATININE,RANDOM URINE 240.2 MG/DL; MAU/CREAT RATIO 67.4 MCG/MG (0.0-30.0)
== END ==
LOC: M LAB REF 13:13
PROVIDERS: ATTEND Physician Assistant
DX: D50.9 Iron deficiency anemia, unspecified (principal); R80.9 Proteinuria, unspecified

== ENCOUNTER → 2024-10-07 | Outpatient (CLI) | payer OTHER | LOC: M RAD 12:21 | PROVIDERS: ATTEND Nurse Practitioner Family | DX: M79.604 Pain in right leg (principal) ==

== ENCOUNTER → 2024-11-06 | Outpatient (CLI) | payer OTHER | LOC: M WHC 10:50 | PROVIDERS: ATTEND Nurse Practitioner Family | DX: N92.0 Excessive and frequent menstruation with regular cycle (principal); D25.1 Intramural leiomyoma of uterus; N88.8 Other specified noninflammatory disorders of cervix uteri ==